=== PATIENT | female | born 1965 | race Caucasian/White ===

== ENCOUNTER → 2020-11-12 15:26 | Outpatient (CLI) | payer BC, SELFPAY ==
--- NOTE | ~2020-11-12 | XR_ITS ---
XR ankle RT 2V DATE: 11/12/2020 16:57 INDICATION: Right ankle pain TECHNIQUE: 2 views COMPARISON: None FINDINGS: No fracture or dislocation of the ankle or disruption of the ankle mortise. No periosteal r eaction or bone destruction. There is a chronic linear calcification along the distal dorsal aspect of the anterior process of th e talus, possibly old cortical avulsion fracture. Minimal plantar and posterior calcaneal enthesopathy. IMPRESSION: Minimal plantar and posterior calcaneal enthesopathy Reviewed, dictated and finalized at location A. NECK HAMMERER
--- NOTE | ~2020-11-12 | XR_ITS ---
XR wrist RT 2V DATE: 11/12/2020 16:57 INDICATION: Right wrist pain TECHNIQUE: AP and lateral views COMPARISON: None FINDINGS: No fracture or dislocation, periosteal reaction or bone destruction, erosive change or timmy drocalcinosis. Joint spaces are well preserved. IMPRESSION: Negative Reviewed, dictated and finalized at location A. COUNSELOR IMPRESSION: Negative
--- NOTE | ~2020-11-12 | XR_ITS ---
XR elbow LT 2V DATE: 11/12/2020 16:57 INDICATION: Left elbow pain TECHNIQUE: AP and lateral views COMPARISON: None FINDINGS: No fracture or dislocation or joint effusion. No periosteal reaction or bone destruction. IMPRESSION: Negative Reviewed, dictated and finalized at location A. ETING PROJECT COORDINATOR IMPRESSION: Negative
--- NOTE | ~2020-11-12 | XR_ITS ---
XR hip BI wo pelvis DATE: 11/12/2020 16:57 INDICATION: Pelvic and bilateral hip pain TECHNIQUE: . AP and lateral views of each hip COMPARISON: None FINDINGS: 1.4 x 2.0 cm calcification is noted at the posteromedial aspect of the right femoral neck. Hip joint spaces are symmetric and relatively well preserved. No fracture or dislocation, avascular necrosis or bone destruction of either hip is evident. The pubi c symphysis and sacroiliac joints are intact. There is degenerative disc disease at L4-5 and L5-S1. IMPRESSION: Degenerative disc disease at L4-5 and L5-S1 Benign calcification adjacent to right femoral neck Reviewed, dictated and finalized at location A. ET DEVELOPMENT TRAINER
--- NOTE | ~2020-11-12 | XR_ITS ---
XR elbow RT 2V DATE: 11/12/2020 16:57 INDICATION: Right elbow pain TECHNIQUE: AP and lateral views COMPARISON: None FINDINGS: Mild spurring of the coronoid process of the proximal ulna. No fracture or dislocation or j oint effusion. No periosteal reaction or bone destruction. IMPRESSION: Mild degenerative spurring of the coronoid process Reviewed, dictated and finalized at location A. R HOUSE ENGINEER
--- NOTE | ~2020-11-12 | XR_ITS ---
XR wrist LT 2V DATE: 11/12/2020 16:57 INDICATION: Left wrist pain TECHNIQUE: AP and lateral views COMPARISON: None FINDINGS: No fracture or dislocation, periosteal reaction or bone destruction. Joint spaces are prese rved. Mild osteoarthritis at the first carpometacarpal joint. No erosive changes or chondrocalcinosis . IMPRESSION: Mild osteoarthritis at the first carpometacarpal joint Reviewed, dictated and finalized at location A. ET FOLDER
--- NOTE | ~2020-11-12 | XR_ITS ---
XR shoulder RT min 2V DATE: 11/12/2020 16:57 INDICATION: Right shoulder pain TECHNIQUE: 2 views COMPARISON: None FINDINGS: No fracture or dislocation. Normal alignment at the acromioclavicular and glenohumeral join ts. No abnormal soft tissue calcification. IMPRESSION: No significant abnormality Reviewed, dictated and finalized at location A. TALIZER OPERATOR IMPRESSION: No significant abnormality
--- NOTE | ~2020-11-12 | XR_ITS ---
XR shoulder LT min 2V DATE: 11/12/2020 16:57 INDICATION: Left shoulder pain TECHNIQUE: 2 views COMPARISON: None FINDINGS: No fracture, dislocation, periosteal reaction or bone destruction or abnormal soft tissue c alcification. IMPRESSION: Negative Reviewed, dictated and finalized at location A. REMENT BENEFITS SPECIALIST IMPRESSION: Negative
--- NOTE | ~2020-11-12 | XR_ITS ---
EXAMINATION: XR foot LT 2V INDICATION: Multiple joint pain TECHNIQUE: Two views of the left foot are obtained. COMPARISON: None available FINDINGS: Bone alignment is normal. There is no fracture. Dorsal and plantar calcaneal enthesophytes are noted. There is mild osteoarthritis of several interphalangeal joints. The soft tissues are unrem arkable. IMPRESSION: 1. No acute osseous abnormality. Reviewed, dictated and finalized at location A. GLASS SANDER
--- NOTE | ~2020-11-12 | XR_ITS ---
XR knee RT 2V DATE: 11/12/2020 16:57 INDICATION: Right knee pain TECHNIQUE: Standing AP and lateral views COMPARISON: None FINDINGS: There is slight periarticular spurring of the patella. There is mild particular spurring of the lateral femoral condyle. There is mild loss of height of medial compartment joint space. No fracture or dislocation or joint effusion. No periosteal reaction or bone destruction. No radiopaq ue interarticular loose body or chondrocalcinosis. IMPRESSION: Mild tricompartment osteoarthritis Reviewed, dictated and finalized at location A. UMER
--- NOTE | ~2020-11-12 | XR_ITS ---
XR ankle LT 2V DATE: 11/12/2020 16:57 INDICATION: Left ankle pain TECHNIQUE: AP and lateral views COMPARISON: None FINDINGS: No fracture or dislocation of the ankle or disruption of the ankle mortise. No periosteal r eaction or bone destruction. Mild plantar and posterior calcaneal enthesopathy. There is some distal Achilles tendon calcification . IMPRESSION: Mild plantar and posterior calcaneal enthesopathy and distal Achilles tendon calcificatio n Reviewed, dictated and finalized at location A. ERN DUPLICATOR IMPRESSION: Mild plantar and posterior calcaneal enthesopathy and distal Achill es tendon calcification
--- NOTE | ~2020-11-12 | XR_ITS ---
EXAMINATION: XR foot RT 2V INDICATION: Multiple joint pain TECHNIQUE: Two views of the right foot are obtained. COMPARISON: None available FINDINGS: A linear heterotopic ossification is seen projecting dorsal to the talus on the lateral vie w. Dorsal and plantar calcaneal enthesophytes are noted. Bone alignment is normal. No acute fracture is identified. There is mild osteoarthritis in several interphalangeal joints. The soft tissues are u nremarkable. IMPRESSION: 1. No acute osseous abnormality. 2. Tiny heterotopic ossification at the talus which may reflect prior injury. Reviewed, dictated and finalized at location A. TER
--- NOTE | ~2020-11-12 | XR_ITS ---
XR hand LT 2V DATE: 11/12/2020 16:57 INDICATION: Left hand pain TECHNIQUE: AP and lateral views COMPARISON: None FINDINGS: There is mild spurring at the first carpometacarpal joint as well as some narrowing of the interphalangeal joints, consistent with osteoarthritis. No fracture, dislocation, periosteal reaction or bone destruction or erosive change or chondrocalcino sis. IMPRESSION: Mild osteoarthritis Reviewed, dictated and finalized at location A. ICITY WRITER IMPRESSION: Mild osteoarthritis
--- NOTE | ~2020-11-12 | XR_ITS ---
XR knee LT 2V DATE: 11/12/2020 16:57 INDICATION: Left knee pain TECHNIQUE: Standing AP and lateral views COMPARISON: None FINDINGS: There is slight periarticular spurring of the patella. Joint spaces are relatively preserved. No fracture or dislocation or joint effusion. No periosteal re action or bone destruction. IMPRESSION: Slight osteoarthritic change at the patellofemoral joint Reviewed, dictated and finalized at location A. RINTENDENT AMMUNITION STORAGE
--- NOTE | ~2020-11-12 | XR_ITS ---
XR hand RT 2V DATE: 11/12/2020 16:57 INDICATION: Right hand pain TECHNIQUE: AP and lateral views COMPARISON: None FINDINGS: No fracture or dislocation, periosteal reaction or bone destruction. There is joint space narrowing at interphalangeal joints including minimal spurring at the proximal i nterphalangeal joint of the third digit, consistent with mild osteoarthritis. IMPRESSION: Mild osteoarthritis Reviewed, dictated and finalized at location A. T EXECUTIVE IMPRESSION: Mild osteoarthritis
== END ==
PROVIDERS: PCP Internal Medicine Infectious Disease; Visit Provider Internal Medicine Rheumatology
DX: M25.50 Pain in unspecified joint (principal); M19.042 Primary osteoarthritis, left hand; M19.041 Primary osteoarthritis, right hand; M17.11 Unilateral primary osteoarthritis, right knee; M77.8 Other enthesopathies, not elsewhere classified; M77.32 Calcaneal spur, left foot; M77.31 Calcaneal spur, right foot; M51.36 Other intervertebral disc degeneration, lumbar region
CPT/HCPCS: 73030; 73070; 73100; 73120; 73521; 73560; 73600; 73620

== ENCOUNTER 2021-01-20 13:16 | Outpatient (CLI) | payer BC, SELFPAY | END 2021-01-20 13:17 | disposition home or self-care (01) | LOC: ANHCOVIDVC 13:16 | PROVIDERS: PCP Internal Medicine Infectious Disease | DX: Z23 Encounter for immunization (principal) | CPT/HCPCS: 0001A; 91300 ==

== ENCOUNTER 2021-02-10 13:13 | Outpatient (CLI) | payer BC, SELFPAY | END 2021-02-10 13:14 | disposition home or self-care (01) | LOC: ANHCOVIDVC 13:13 | PROVIDERS: PCP Internal Medicine Infectious Disease | DX: Z23 Encounter for immunization (principal) | CPT/HCPCS: 0002A; 91300 ==